=== PATIENT | male | born 1990 | race Two or more races ===

== ENCOUNTER 2024-10-31 00:23 | Emergency (ER) | payer MEDICAID, SELFPAY ==
[2024-10-31 00:29] VITALS: BP 131/68; PULSE 88; RESP 18; TEMP 36.4; O2SAT 98; BMI 31.7
--- NOTE | 2024-10-31 00:53 | EDNOTE_ITS ---
ED Wound/Laceration-RME/HPI General Chief Complaint: Wound/Laceration Stated Complaint: LACERATION TO LEFT HAND Time Seen by Provider: 10/31/24 01:08 Arrival date/time: 10/31/24 00:23 RME / HPI RME / HPI narrative: This section includes all my notes and documentations, including HPI, PE, and ED course. Maxim Dai MD HPI: 34yo male presents to the ED for a chief complaint of a laceration to his left thumb. Patient cut his thumb with a supervisor transferring and boxing just prior to arrival. No other complaints reported. ROS: All negative except as documented in HPI. Physical Exam: General: Alert and oriented. No acute distress when remaining still. Eyes: Conjunctivae and lids clear. ENT: No nasal congestion. Neck: Supple. Lungs: No respiratory distress. Skin: Warm and dry. Neuro: Alert and oriented X 3. Left thumb: In the dorsal surface, there is a vertical 3.5 cm full?skin thickness laceration with active bleeding. No NVT injury. At this point, diagnoses include laceration of left thumb. Treatment here included laceration repair, topical bacitracin, Tdap, and Augmentin. See laceration repair procedure note. Provided good wound care instructions. Based on my best medical judgment, made decision no further evaluation or treatment indicated at this time. Patient understands and agrees to the discharge instructions customized and printed, see below. Discharge instructions from Dr. Dai: -- Your laceration was repaired with 7 stitches. -- Keep the current dressing intact for 24 hours. -- After 24 hours, change the dressing once daily. -- First remove the dressing gently. If it does not come off easily, run water through it until it comes off easily. -- Then gently wash with soap and water. -- After completely drying, apply antibiotic ointment and new dressing. -- Elevate above the heart level today and tomorrow as much as possible. Placing the hand on the head is a good method. -- See your doctor or return here in 7 days for suture removal. Total of 7 stitches. -- Seek immediate medical care with fever, spreading redness from the wound, or with any concerns. Maxim Dai MD Related Data Previous Rx's ?Medication ?Instructions ?Recorded metoclopramide HCl 10 mg tablet 10 mg PO Q6H PRN nause a and 12/14/21 (Reglan) vomiting #20 tabs Allergies Allergy/AdvReac Type Severity Reaction Status Date / Time No Known Allergies Allergy Verified 10/31/24 00:25 Review of Systems Review of Systems Systems Reviewed: All systems reviewed, normal except as documented Past Medical History Social History SMOKING STATUS: Never smoker ED Exam Narrative Physical exam: As noted in HPI. Course Quality Measures none Orders Category Date Time Status Wound Care [Wound Care] NOW Care 10/31/24 01:09 Completed Amoxicillin/Pot Clav 875 [Augmentin 875] Med 10/31/24 01:08 Discontinued 1 tab PO X1 ONE Bacitracin Oint pkt Med 10/31/24 01:08 Discontinued 1 gm TOP X1 ONE TET,DIP/PERT AC (Adult)-Tdap [Boostrix Adult (Tdap) Med 10/31/24 01:08 Discontinued Vacc] 0.5 ml IMI .ONCE ONE Vital Signs Vital signs: Vital Signs Temperature 97.6 F 10/31/24 00:29 Pulse Rate 88 10/31/24 00:29 Respiratory Rate 18 10/31/24 00:29 Blood Pressure 131/68 H 10/31/24 00:29 Pulse Oximetry (%) 98 10/31/24 00:29 Oxygen Delivery Method Room Air 10/31/24 00:29 PROCEDURES: Laceration Laceration 1: Site: hand (thumb) Side (If applicable): left Size (cm): 3.5 Description: linear Depth: simple, single layer Local Anesthetic: lidocaine 1% Amount of anesthesia used (mL): 4 Pre-repair: irrigated extensively Skin layer closed with: nylon Suture size (cm): 3-0 Number of sutures: 7 Technique: simple, interrupted Wound / Laceration MDM Narrative MDM Narrative:: 34yo male presents to the ED for a chief complaint of a laceration to his left thumb. Patient cut his thumb with a supervisor transferring and boxing just prior to arrival. No other complaints reported. Patient data External records reviewed:: [facility] previous records (Per chart review, patient has no relevant previous ED visits.) Clinical information provided by:: patient Social determinants that could affect healthcare access:: none Patient has the following chronic illnesses:: none How is presenting disease/condition affected by chronic disease/condition?: no chronic disease Evaluation data The following diagnostics were reviewed and interpreted by me:: other (specify) (none) Lab and/or radiology exams considered but not ordered:: none Interpretation Summary: none Medications / Prescriptions Medications or Prescriptions considered but not ordered:: none Medication administrations:: Medication Administration History Discontinued Medications Amoxicillin/Clavulanate Potassium (Amoxicillin/Pot Clav 875 Tablet) 1 tab PO X1 ONE Stop: 10/31/24 01:09 Last Admin: 10/31/24 01:15 Dose: 1 tab Documented By: CVL Bacitracin (Bacitracin Oint 1 Gm Packet) 1 gm TOP X1 ONE Stop: 10/31/24 01:09 Last Admin: 10/31/24 01:19 Dose: 1 gm Documented By: CVL Diphtheria/Tetanus/Acell Pertussis (Diphth,Pertuss(Acell),Tet Vac 0.5 Ml Syr- Adult) 0.5 ml IMi .ONCE ONE Stop: 10/31/24 01:09 Last Admin: 10/31/24 01:17 Dose: 0.5 ml Documented By: CVL Bacitracin, Tdap, Augmentin Consultations Consultation(s) initiated? (list below): No Diagnosis Wound Differential Diagnosis: laceration Most likely diagnosis given after review of the tests above:: Laceration of left thumb Admission Indicated Admission indicated?: not indicated Explain why admission is indicated or not indicated:: With no condition needing emergent intervention, there was no indication for admission. Admission Request Was there a request for admission?: No Disposition Plan Disposition Plan: Discharge Discharge Attestation Discharge Attestation: The patient and all family members were given an opportunity to ask questions and understood the discharge instructions. Discharge instructions specifically effects, indications for sooner follow up or return to the emergency department, and the expected course of current diagnosis. Patient condition: Stable Discharge Plan Plan Patient Disposition: HOME (Self Care) Prescriptions/Referrals Prescriptions/Med Rec: No Action metoclopramide HCl [Reglan] 10 mg tablet 10 mg PO Q6H PRN (Reason: nausea and vomiting) Qty: 20 0RF Problem List Clinical Impression: Laceration of left thumb Patient/Caregiver Discharge Instructions Discharge Activity: activity as tolerated Education Materials: ED Laceration: All Closures Additional Instructions: Discharge instructions from Dr. Dai:? -- Your laceration was repaired with 7 stitches. -- Keep the current dressing intact for 24 hours. -- After 24 hours, change the dressing once daily. -- First remove the dressing gently.? If it does not come off easily, run water through it until it comes off easily. -- Then gently wash with soap and water. -- After completely drying, apply antibiotic ointment and new dressing. -- Elevate above the heart level today and tomorrow as much as possible.? Placing the hand on the head is a good method. -- See your doctor or return here in 7 days for suture removal.? Total of 7 stitches. -- Seek immediate medical care with fever, spreading redness from the wound, or with any concerns. Print Language: Lao Stand Alone Forms: Nadine Award Info., Work/School Release, Patient Portal Info Letter
[2024-10-31] MEDS: AMOXICILLIN/POT CLAV 875 TABLET 1 TAB PO (01:15)
[2024-10-31] MEDS: DIPHTH,PERTUSS(ACELL),TET VAC 0.5 ML SYR- ADULT IMi (01:17)
[2024-10-31] MEDS: BACITRACIN OINT 1 GM PACKET TOP (01:19)
[2024-10-31 01:34] VITALS: RESP 16
== END 2024-10-31 01:34 | disposition home or self-care (01) ==
LOC: SERX 01:33
PROVIDERS: Emergency Provider Emergency Medicine; PCP Internal Medicine
DX: S61.012A Laceration without foreign body of left thumb without damage to nail, initial encounter (principal); W27.8XXA Contact with other nonpowered hand tool, initial encounter; Z23 Encounter for immunization
CPT/HCPCS: 12002; 90715; 99283; A9270

== ENCOUNTER 2025-04-12 19:47 | Emergency (ER) | payer MEDICAID, SELFPAY ==
[2025-04-12 19:48] VITALS: BMI 31.7
--- NOTE | 2025-04-12 20:14 | PC.NURSE ---
Pt did not answer when name was called and was not found outside.
[2025-04-12 20:40] VITALS: BP 125/84; PULSE 96; RESP 20; TEMP 36.7; O2SAT 97
--- NOTE | 2025-04-12 20:47 | XR_ITS ---
Examination: CT chest, without intravenous contrast. Sagittal and coronal 2-D reconstructions. Exam date and time: April 12, 2025, 2110 hours INDICATIONS: Food stuck in the lower esophagus today CTDI:vol (mGy) 15.31 DLP: (mGycm) 611 Technique: Multiple 3.0 mm axial sections of the chest to been obtained. Bone and lung density settings are obtained. Sagittal and coronal 2-D reconstructions have been obtained. Low dose protocols were performed. One or more of the following dose reduction techniques were used; automated exposure control, adjustment of the mA and/or KV according to patient size, use of iterative reconstruction technique. Findings: Fluid distended esophagus with food in the lower esophagus consistent with stricture at the lower gastroesophageal junction No mediastinal lymphadenopathy Normal heart size No pneumonia or pulmonary edema No visualized liver or splenic lesion No pancreatic mass No gallstones IMPRESSION: Fluid distended esophagus, with fluid in the lower esophagus consistent with stricture at the lower gastroesophageal junction, likely reflux esophagitis with stricture at the gastroesophageal junction Recommend elective standard fluoroscopically-guided esophagram follow-up
[2025-04-12] MEDS: GLUCAGON INJ 1 MG VIAL IM (21:33)
--- NOTE | 2025-04-12 23:24 | PD.EDABDPN ---
ED Abdominal Pain RME/HPI General Chief Complaint: Abdominal Pain Stated complaint: MICHEL EDWARDS FEELS STUCK IN LOWER ESOPHAGUS Time seen by provider: 04/12/25 20:46 Arrival date/time: 04/12/25 19:47 Source: patient Limitations: no limitations RME / HPI RME / HPI narrative: This patient is an otherwise healthy 35-year-old male who arrives to the ED today for evaluation of trapped food concerns in his esophagus for the past few days. Patient states that he has felt like he has not been able to swallow food completely. Patient states that yesterday he had a meal with meat in it and subsequent to that, feels like the meat is trapped in his lower chest/upper abdomen. Patient states he has utilized water, but states that sometimes he burps and the water comes back up. Patient denies any fever nausea or vomiting. Vital signs were stable. Related Data Previous Rx's ?Medication ?Instructions ?Recorded metoclopramide HCl 10 mg tablet 10 mg PO Q6H PRN nausea and 12/14/21 (Reglan) vomiting #20 tabs omeprazole 10 mg capsule,delayed 10 mg PO QDAY 14 days #14 caps 04/12/25 release Allergies Allergy/AdvReac Type Severity Reaction Status Date / Time No Known Allergies Allergy Verified 10/31/24 00:25 Review of Systems Review of Systems Systems Reviewed: All systems reviewed, normal except as documented Past Medical History Social History SMOKING STATUS: Current every day smoker ED Exam Narrative Physical exam: Patient appears mildly uncomfortable at time of evaluation. General Limitations: Present no limitations General appearance: Present alert and in no apparent distress Head Head exam: Present atraumatic Eye Eye exam: Present normal appearance, PERRL and EOMI ENT ENT exam: Present normal exam, normal oropharynx and mucous membranes moist Neck Neck exam: Present normal inspection, full ROM and trachea midline Chest Chest inspection: Present normal inspection and symmetric chest wall rise Respiratory Respiratory exam: Present normal lung sounds bilaterally Cardiovascular Cardiovascular exam: Present regular rate, normal rhythm and normal heart sounds Abdominal Exam Abdominal exam: Present other ( diffuse nonspecific tenderness with in the esophagus rather than through any palpation. No signs of trauma.) Extremities Exam Extremities exam: Present normal inspection and full ROM Back Exam Back exam: Present normal inspection and full ROM Neurological Exam Neurological exam: Present alert, oriented X3 and CN II-XII intact Psychiatric Psychiatric exam: Present normal affect and normal mood Skin Skin exam: Present warm, dry, intact and normal color Course Quality Measures none Orders Category Date Time Status Blood glucose [Bedside Blood Glucose] NOW Care 04/12/25 21:[address] chest wo con Stat Exams 04/12/25 20:47 Completed Glucagon Inj Med 04/12/25 20:47 Discontinued 1 mg IM X1 ONE As noted above Vital Signs Vital signs: Vital Signs Temperature 98.1 F 04/12/25 20:40 Pulse Rate 96 04/12/25 20:40 Respiratory Rate 20 04/12/25 20:40 Blood Pressure 125/84 04/12/25 20:40 Pulse Oximetry (%) 97 04/12/25 20:40 Oxygen Delivery Method Room Air 04/12/25 20:40 As noted above Abdominal Pain MDM MDM Narrative MDM Narrative:: All studies performed the ED were evaluated by me personally. CT of the chest without contrast noted a fluid distended esophagus with fluid in the lower esophagus consistent with stricture at the lower gastroesophageal junction which is likely reflux esophagitis. Recommendation was for elective standard fluoroscopy esophagram on an outpatient basis. Patient has been advised of the findings and will be sent home with a proton pump inhibitor. Advised patient to do a thorough mastication of food before swallowing. At least 50 bites prior to swallowing. Patient data External records reviewed:: [facility] previous records Clinical information provided by:: patient Social determinants that could affect healthcare access:: none Patient has the following chronic illnesses:: None How is presenting disease/condition affected by chronic disease/condition?: no chronic disease Evaluation data The following diagnostics were reviewed and interpreted by me:: radiology exam(s) Lab and/or radiology exams considered but not ordered:: None Interpretation Summary: Stricture of the lower gastroesophageal junction. Medications / Prescriptions Medications or Prescriptions considered but not ordered:: None Medication administrations:: Medication Administration History Discontinued Medications Glucagon (Glucagon Inj 1 Mg Vial) 1 mg IM X1 ONE Stop: 04/12/25 20:48 Last Admin: 04/12/25 21:33 Dose: 1 mg Documented By: As noted above Consultations Consultation(s) initiated? (list below): No Diagnosis Differential diagnosis abdominal pain: other (Achalasia, esophageal stricture, acid reflux) Most likely diagnosis given after review of the tests above:: Esophageal stricture Admission Indicated Admission indicated?: not indicated Explain why admission is indicated or not indicated:: Unwarranted Admission Request Was there a request for admission?: No Disposition Plan Disposition Plan: Discharge Discharge Attestation Discharge Attestation: The patient and all family members were given an opportunity to ask questions and understood the discharge instructions. Discharge instructions specifically effects, indications for sooner follow up or return to the emergency department, and the expected course of current diagnosis. Patient condition: Stable Discharge Plan Plan Patient Disposition: HOME (Self Care) Prescriptions/Referrals Prescriptions/Med Rec: New omeprazole 10 mg capsule,delayed release(DR/EC) 10 mg PO QDAY 14 Days Qty: 14 0RF No Action metoclopramide HCl [Reglan] 10 mg tablet 10 mg PO Q6H PRN (Reason: nausea and vomiting) Qty: 20 0RF Referrals: Román Dick MD [Primary Care Provider, Nephrology] - In 1 week Problem List Clinical Impression: Esophageal stricture Patient/Caregiver Discharge Instructions Education Materials: Esophageal Dilation Additional Instructions: Advised patient lysed medication as directed in addition, patient will need to follow-up with primary care provider for GI referral and evaluation to assess his esophageal stricture concerns. Print Language: Citizen Of [place] Stand Alone Forms: Nadine Award Info., Patient Portal Info Letter
[2025-04-12 23:42] VITALS: BP 132/68; PULSE 78; RESP 19; TEMP 36.4; O2SAT 98
== END 2025-04-12 23:42 | disposition home or self-care (01) ==
PROVIDERS: Emergency Provider Emergency Medicine; PCP Internal Medicine
DX: K22.2 Esophageal obstruction (principal)
CPT/HCPCS: 71250; 96372; 99283; J1611